=== PATIENT | female | born 1960 | race Caucasian/White ===

== ENCOUNTER 2017-01-20 22:45 | Inpatient (IN) | payer MEDICARE ==
[~2017-01-20] VITALS: Ht 165.1 cm; Wt 68.2 kg
[2017-01-21 02:47] LABS: HEMOGLOBIN 11.1 gm/dl (12.3-15.3); RED BLOOD COUNT 3.61 M/UL (4.00-5.10); WHITE BLOOD COUNT 8.6 K/UL (4.5-11.0)
[2017-01-21] MEDS ORDERED: XANAX0.5 MG PO (04:27)
[2017-01-21] MEDS ORDERED: SERTRALINE HCL100 MG PO (04:27)
[2017-01-21] MEDS ORDERED: SYNTHROID50 MCG PO (04:27)
[2017-01-21] MEDS ORDERED: IMDUR ER TAB 6060 MG PO (04:27)
[2017-01-21] MEDS ORDERED: ZANTAC 150 MG150 MG PO (04:28)
[2017-01-21 05:51] LABS: HEMOGLOBIN 10.8 gm/dl (12.3-15.3); RED BLOOD COUNT 3.55 M/UL (4.00-5.10); WHITE BLOOD COUNT 7.9 K/UL (4.5-11.0)
[2017-01-22 05:27] LABS: RED BLOOD COUNT 3.24 M/UL (4.00-5.10)
[2017-01-22 05:28] LABS: WHITE BLOOD COUNT 5.3 K/UL (4.5-11.0)
[2017-01-23 06:39] LABS: HEMOGLOBIN 9.5 gm/dl (12.3-15.3); RED BLOOD COUNT 3.04 M/UL (4.00-5.10); WHITE BLOOD COUNT 5.1 K/UL (4.5-11.0)
[2017-01-23 06:46] LABS: BUN/CREATININE RATIO 11 (0-10)
[2017-01-23] MEDS ORDERED: LOVENOX30 MG/0.3 SQ (12:43)
[2017-01-23] MEDS ORDERED: PERCOCET 5-3251 EACH PO (12:44)
== END 2017-01-23 11:41 | disposition home health service (06) | DRG 482 ==
LOC: ER1 22:45 → M/S 01-21 02:00 → ZEROF 01-21 02:00 → M/S 01-21 04:15
PROVIDERS: Orthopaedic Surgery; Physician Assistant; ADMIT Internal Medicine
PROC: 0QS604Z Reposition Right Upper Femur with Internal Fixation Device, Open Approach (ICD-10-PCS; principal; 2017-01-21 15:30)
DX: S72.141A Displaced intertrochanteric fracture of right femur, initial encounter for closed fracture (principal); W18.30XA Fall on same level, unspecified, initial encounter; I73.1 Thromboangiitis obliterans [Buerger's disease]; F32.9 Major depressive disorder, single episode, unspecified; F41.9 Anxiety disorder, unspecified; E03.9 Hypothyroidism, unspecified; R73.9 Hyperglycemia, unspecified; D64.9 Anemia, unspecified; D69.6 Thrombocytopenia, unspecified; Z79.899 Other long term (current) drug therapy
CPT/HCPCS: 36415; 71010; 73502; 73552; 73562; 76000; 80048; 80053; 82728; 83036; 83540; 83550; 85025; 85027; 85610; 85730; 86850; 86900; 86901; 93005; 96361; 96374; 96375; 96376; 97110; 97116; 97530; 97535; 99284; C1729; J0690; J1650; J2250; J2270; J2405; J2795; J3010; J7030; J7120; Q0162

== ENCOUNTER 2020-08-18 07:18 | Emergency (ER) | payer MEDICARE ==
[~2020-08-18 07:18] MED LIST: IMDUR ER TAB 6060 MG PO; LOVENOX30 MG/0.3 SQ; PERCOCET 5-3251 EACH PO; SERTRALINE HCL100 MG PO; SYNTHROID50 MCG PO; XANAX0.5 MG PO; ZANTAC 150 MG150 MG PO
[2020-08-18] MEDS ORDERED: HYDROCODON-ACE1 EAC4 PO (11:27)
[2020-08-20] MEDS ORDERED: LEVOTHYROXINE50 MCG PO (11:49)
[2020-08-20] MEDS ORDERED: ZOLOFT100 MG PO (11:50)
[2020-08-20] MEDS ORDERED: OMEPRAZOLE40 MG PO (11:51)
[2020-08-20] MEDS ORDERED: VITAMIN D21250 MCG PO (11:52)
== END 2020-08-18 11:46 | disposition home or self-care (01) ==
LOC: ER1 07:18
DX: S52.501A Unspecified fracture of the lower end of right radius, initial encounter for closed fracture (principal); S52.601A Unspecified fracture of lower end of right ulna, initial encounter for closed fracture; W01.0XXA Fall on same level from slipping, tripping and stumbling without subsequent striking against object, initial encounter; Z98.890 Other specified postprocedural states
CPT/HCPCS: 29125; 73110; 73502; 99283; J1885

== ENCOUNTER → 2020-08-20 | Day surgery (SDC) | payer MEDICARE ==
[~2020-08-20] VITALS: Ht 160 cm; Wt 57.6 kg
[~2020-08-20] MED LIST changes: +HYDROCODON-ACE1 EAC4 PO; +LEVOTHYROXINE50 MCG PO; +OMEPRAZOLE40 MG PO; +VITAMIN D21250 MCG PO; +ZOLOFT100 MG PO
[2020-08-20 11:19] LABS: HEMOGLOBIN 12.2 gm/dl (12.3-15.3); RED BLOOD COUNT 4.1 M/UL (4.00-5.10); WHITE BLOOD COUNT 7.7 K/UL (4.5-11.0)
[2020-08-20 11:38] LABS: BUN/CREATININE RATIO 13 (0-10)
== END | disposition home or self-care (01) ==
LOC: OR 10:38
PROVIDERS: Orthopaedic Surgery
DX: S52.571A Other intraarticular fracture of lower end of right radius, initial encounter for closed fracture (principal); W19.XXXA Unspecified fall, initial encounter; Z20.822 Contact with and (suspected) exposure to COVID-19; Y92.9 Unspecified place or not applicable
CPT/HCPCS: 36415; 71045; 73100; 76000; 80048; 85025; 87635; 93005; C1713; J0690; J2001; J2250; J2405; J2704; J7120